=== PATIENT | female | born 1990 | race Caucasian/White ===

== ENCOUNTER 2019-04-05 18:48 | Inpatient (IN) | payer OTHER ==
--- NOTE | 2019-04-05 18:59 | Non Stress Test Report ---
Non Stress Test Datetime Report Generated by CPN: 04/05/2019 18:58 DEMOGRAPHIC EGA NST: 35.0 INDICATION Indication for Study: Ordered by Provider Indication for Study (NST) Other: uti MONITORING Monitor Explained: Monitor Explained; Test Explained; Patient Verbalized Understanding Time on Monitor: 03/04/2019 19:00 Time off Monitor: 03/04/2019 20:00 NST Duration: 60 NST INTERVENTIONS NST Interventions: PO Hydration; IV Fluids; Reposition Patient Physician Notified NST: Dr Lee BABY A: [id number] BABY A Movement : Present Contraction Frequency : irreg FHR Baseline : 130 Accelerations : 15X15 Decelerations : None Variability : Moderate 6-25bpm NST Review: Meets Criteria for Reactive NST NST Review and Verified By : KACEY Barrera Results: Reactive NST REPORT Report Trigger: Send Report
--- NOTE | 2019-04-05 18:59 | Admission Physical ---
Datetime Report Generated by CPN: 04/05/2019 18:58 CURRENT ADMISSION Chief Complaint: Other Chief Complaint Other: nausea/vomiting, RIght flank pain Indication for Induction: Not Applicable Admit Impression : , Intrauterine ; No Active Labor; Intact Membranes; Observation/Evaluation Admit Plan: Admit to Unit; Observation/Evaluation ALLERGIES Medication Allergies: No Medication Allergies: No Known Allergies (03/04/2019) Latex: No Latex Allergies OBSTETRICAL HISTORY EDC: 04/08/2019 00:00 : 1 Para: 0 Gestational Diabetes: No Rh Sensitization: No Incompetent Cervix: No TONG: No Infertility: No ART Treatment: No Uterine Anomaly: No IUGR: No Hx Previous C/S: No Macrosomia: No Hx Loss/Stillborn: No PIH: No Hx : No Placenta Previa/Abruption: No Depression/PP Depression: No PTL/PROM: No Post Hemorrhage: No Current Procedures: Ultrasound; NST Obstetrical History Comments: G1: current SEE RECORDS Alcohol: No Marijuana : No Cocaine: No Other Illicit Drugs: No Cigarettes: Never Smoker. 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 Heart Disease: No Hosp/Surgery: No Autoimmune Disorder: No Anesthetic Complications: No Kidney Disease: Yes Abnormal Pap Smear: No Neuro/Epilepsy: No Psychiatric Disorders: Yes Other Medical Diseases: No Hepatitis/Liver Disease: No Significant Family History: No Varicosities/Phlebitis: No Trauma/Violence : No Thyroid Dysfunction: No Medical History Comments: anxiety, teeth removal INFECTIOUS HISTORY Gonorrhea: No Genital Herpes: No Chlamydia: No Tuberculosis: No Syphilis: No Hepatitis: No HIV/AIDS Exposure: No Rash or Viral Illness: No HPV: No PHYSICAL EXAM General: Normal HEENT: Normal Neurologic: Normal Thyroid: Deferred Heart: Normal Lungs: Normal Breast: Deferred Back: Normal Abdomen: Normal Genitourinary Exam: Normal Extremities: Normal DTRs: Normal Pelvic Type: Adequate Physical Exam Comments: Right CVAT. Vital Signs: Reviewed VAGINAL EXAM Dilatation: 0 Effacement: 0 Station: hi Contraction Comments: rare MEMBRANES Membranes: Intact FETUS A EGA: 35.1 Monitoring: External US FHR- Baseline: 125 Variability: Moderate 6-25bpm Accelerations: 15X15 Decelerations: None Presentation: Vertex Admit Comment: Late H_P for 03/04 approx 1900. 28yo at 35wks presents for right flank pain and nausea. She was seen in the office today and was told she has a UTI. Yeast infection also noted on wet prep. She has been unable to tolerate po intake today so has been unable to tolerate macrobid and has been unable to tolerte pain meds. Right CVAT and flank pain. WBC elevated. Will admit to observation to given IV abx and for pain and nausea control. Once able to tolerate po intake and po meds should be able to go home to continue outpatient treatment. PLANS FOR LABOR AND DELIVERY Labor and Delivery: None Feeding Preference: Breast Circumcision: Yes INFORMED CONSENT Informed Consent Obtained: Risks, Benefits and Alternatives Discussed Signature: with User ID: [email or web address]
[2019-04-05] MEDS ORDERED: RINGERS SOLUTION,LACTATED 1,000 ML IV PRN (19:52)
[2019-04-05 19:58] LABS: APPEARANCE,URINE CLOUDY; BILIRUBIN,URINE NEGATIVE (NEGATIVE); COLOR,URINE YELLOW; GLUCOSE, URINE NEGATIVE (NEGATIVE); KETONES,URINE NEGATIVE (NEGATIVE); LEUKOCYTE ESTERASE,URINE LARGE (NEGATIVE); NITRITE,URINE NEGATIVE (NEGATIVE); PROTEIN,URINE 100 mg/dL (NEGATIVE); URINE SPECIFIC GRAVITY 1.018; UROBILINOGEN,URINE NEGATIVE mg/dL (<2.0)
[2019-04-05 20:30] LABS: URINE AMPHETAMINES SCREEN NEGATIVE; URINE BARBITURATES SCREEN NEGATIVE; URINE BENZODIAZEPINES SCREEN NEGATIVE; URINE COCAINE SCREEN NEGATIVE; URINE MARIJUANA (THC) SCREEN NEGATIVE; URINE METHADONE SCREEN NEGATIVE; URINE PHENCYCLIDINE SCREEN NEGATIVE
[2019-04-05 20:44] LABS: ABSOLUTE EOSINOPHILS # (AUTO) 0.1 10^3/uL (0.0-0.6); ABSOLUTE MONOCYTES (AUTO) 0.8 10^3/uL (0.1-1.4); ABSOLUTE NEUT (AUTO) 9.2 10^3/uL (1.7-8.2); BASOPHILS % (AUTO) 0.3 % (0-2); EOSINOPHILS % (AUTO) 0.6 % (0-6); HEMATOCRIT 34.4 % (36.0-47.0); HEMOGLOBIN 11.6 g/dL (12.0-15.5); LYMPHOCYTES % (AUTO) 16.3 % (13-45); MEAN CORPUSCULAR HEMOGLOBIN 29.9 pg (27.0-33.4); MEAN CORPUSCULAR HGB CONC 33.8 g/dL (32.0-36.0); MEAN CORPUSCULAR VOLUME 88 fl (80-97); MONOCYTES % (AUTO) 6.7 % (3-13); PLATELET COUNT 154 10^3/uL (150-450); RED BLOOD COUNT 3.89 10^6/uL (3.72-5.28); RED CELL DISTRIBUTION WIDTH 15.3 % (11.5-14.0); SEGMENTED NEUTROPHILS % (AUTO) 76.1 % (42-78); TOTAL CELLS COUNTED % (AUTO) 100 %; WHITE BLOOD COUNT 12.1 10^3/uL (4.0-10.5)
[2019-04-05] MEDS ORDERED: MAG HYDROX/AL HYDROX/SIMETH SUSP 30 ML UDCUP ONE (22:41)
[2019-04-05] MEDS ORDERED: MAG HYDROX/AL HYDROX/SIMETH SUSP 30 ML UDCUP PO ONE (23:59)
[2019-04-06] MEDS ORDERED: FENTANYL/BUPIVACAINE/NS/PF 200 MCG/100 ML RTUINJ EPI PRN (00:16)
[2019-04-06] MEDS ORDERED: BENZOIN/ALOE VERA/STORAX/TOLU TINCTURE 60 ML TP PRN (00:16)
[2019-04-06] MEDS ORDERED: BUPIVACAINE HCL 0.25 % INJ/PF (2.5 MG/1 ML) 30 ML VIAL INFIL ONE (00:16)
[2019-04-06] MEDS ORDERED: PHENYLEPHRINE HCL INJ/PF 10 MG/1 ML SDV ONE (00:24)
[2019-04-06] MEDS ORDERED: BUPIVACAINE HCL 0.25 % INJ/PF (2.5 MG/1 ML) 30 ML VIAL ONE (00:25)
[2019-04-06] MEDS ORDERED: FENTANYL CITRATE INJ/PF 100 MCG/2 ML AMPUL ONE (00:25)
[2019-04-06] MEDS ORDERED: FENTANYL/BUPIVACAINE/NS/PF 300 MCG/150 ML RTUINJ EPI ONE (00:25)
[2019-04-06] MEDS ORDERED: EPHEDRINE SULFATE INJ 50 MG/1 ML AMPULE ONE (00:25)
[2019-04-06] MEDS ORDERED: OXYTOCIN/NORMAL SALINE 20 UNIT/1,000 ML RTUINJ ONE (00:43)
[2019-04-06] MEDS ORDERED: MISOPROSTOL 0.2 MG TABLET ONE (00:43)
[2019-04-06] MEDS ORDERED: LIDOCAINE 1% INJ-PF (10 MG/ML) 30 ML SDV ONE (00:43)
[2019-04-06] MEDS ORDERED: OXYTOCIN 10 UNIT/ML VIAL ONE (00:43)
--- NOTE | 2019-04-06 05:51 | Admission Physical ---
Datetime Report Generated by CPN: 04/06/2019 05:51 CURRENT ADMISSION Chief Complaint: Uterine Contractions Chief Complaint Other: nausea/vomiting, RIght flank pain Indication for Induction: Not Applicable Admit Impression : Term, Intrauterine Admit Plan: Initiate Labor Protocol ALLERGIES Medication Allergies: No Medication Allergies: No Known Allergies (04/05/2019) Latex: Unknown Food Allergies: none Environmental Allergies: none OBSTETRICAL HISTORY EDC: 04/08/2019 00:00 : 1 Para: 0 Gestational Diabetes: No Rh Sensitization: No Incompetent Cervix: No TONG: No Infertility: No ART Treatment: No Uterine Anomaly: No IUGR: No Hx Previous C/S: No Macrosomia: No Hx Loss/Stillborn: No PIH: No Hx : No Placenta Previa/Abruption: No Depression/PP Depression: No PTL/PROM: No Post Hemorrhage: No Current Procedures: Ultrasound; NST Obstetrical History Comments: G1: current SEE RECORDS Alcohol: No Marijuana : No Cocaine: No Other Illicit Drugs: No Cigarettes: Never Smoker. 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 Heart Disease: No Hosp/Surgery: No Autoimmune Disorder: No Anesthetic Complications: No Kidney Disease: Yes Abnormal Pap Smear: No Neuro/Epilepsy: No Psychiatric Disorders: Yes Other Medical Diseases: No Hepatitis/Liver Disease: No Significant Family History: No Varicosities/Phlebitis: No Trauma/Violence : No Thyroid Dysfunction: No Medical History Comments: anxiety, teeth removal, kidney surgery INFECTIOUS HISTORY Gonorrhea: No Genital Herpes: No Chlamydia: No Tuberculosis: No Syphilis: No Hepatitis: No HIV/AIDS Exposure: No Rash or Viral Illness: No HPV: No PHYSICAL EXAM General: Normal HEENT: Normal Neurologic: Normal Thyroid: Normal Heart: Normal Lungs: Normal Breast: Deferred Back: Normal Abdomen: Normal Genitourinary Exam: Normal Extremities: Normal DTRs: Normal Pelvic Type: Adequate Physical Exam Comments: Right CVAT. Vital Signs: Reviewed VAGINAL EXAM Dilatation: 0 Effacement: 0 Station: hi Contraction Comments: rare MEMBRANES Membranes: Intact FETUS A EGA: 39.5 Monitoring: External US FHR- Baseline: 125 Variability: Moderate 6-25bpm Accelerations: 15X15 Decelerations: None Presentation: Vertex Admit Comment: Late H_P for 03/04 approx 1900. 28yo at 35wks presents for right flank pain and nausea. She was seen in the office today and was told she has a UTI. Yeast infection also noted on wet prep. She has been unable to tolerate po intake today so has been unable to tolerate macrobid and has been unable to tolerte pain meds. Right CVAT and flank pain. WBC elevated. Will admit to observation to given IV abx and for pain and nausea control. Once able to tolerate po intake and po meds should be able to go home to continue outpatient treatment. PLANS FOR LABOR AND DELIVERY Labor and Delivery: None Pain Management: Medications; Epidural Feeding Preference: Breast Benefit of Breast Feed Discussed: Yes Circumcision: Yes INFORMED CONSENT Informed Consent Obtained: Risks, Benefits and Alternatives Discussed Signature: with User ID: [email or web address]
[2019-04-06] MEDS ORDERED: ACETAMINOPHEN 650 MG SUPP.RECT PR PRN (07:32)
[2019-04-06] MEDS ORDERED: MEASLES,MUMPS&RUBELLA VACC/PF 0.5 ML VIAL SUBCUT PRN (07:32)
[2019-04-06] MEDS ORDERED: PROMETHAZINE HCL 25 MG SUPP.RECT PR PRN (07:32)
[2019-04-06] MEDS ORDERED: NA PHOS,M-B/NA PHOS,DI-BA (ADULT) 133 ML ENEMA PR PRN (07:32)
[2019-04-06] MEDS ORDERED: DIPH/PERTUSS(ACELL)/TETANUS VAC/PF 0.5 ML SYR (>=10YO) IM PRN (07:32)
[2019-04-06] MEDS ORDERED: DIBUCAINE 1% OINTMENT 56 GM TP PRN (07:32)
[2019-04-06] MEDS ORDERED: OXYTOCIN/NORMAL SALINE 20 UNIT/1,000 ML RTUINJ IV PRN (07:32)
[2019-04-06] MEDS ORDERED: PSEUDOEPHEDRINE HCL 30 MG TABLET PO PRN (07:32)
[2019-04-06] MEDS ORDERED: MAGNESIUM HYDROXIDE SUSP 30 ML UDCUP PO PRN (07:32)
[2019-04-06] MEDS ORDERED: DIPHENHYDRAMINE HCL 25 MG CAPSULE PO PRN (07:32)
[2019-04-06] MEDS ORDERED: PROMETHAZINE HCL 25 MG TABLET PO PRN (07:32)
[2019-04-06] MEDS ORDERED: ACETAMINOPHEN WITH CODEINE #3 TABLET PO PRN (07:32)
[2019-04-06] MEDS ORDERED: GLYCERIN/WITCH HAZEL LEAF 1 EACH MED..WIPE TP PRN (07:32)
[2019-04-06] MEDS ORDERED: BENZOCAINE/MENTHOL AEROSOL SPRAY 56 ML TOP PRN (07:32)
[2019-04-06] MEDS ORDERED: PROMETHAZINE HCL INJ 25 MG/1 ML VIAL IV PRN (07:32)
[2019-04-06] MEDS ORDERED: ZOLPIDEM TARTRATE 5 MG TABLET PO PRN (07:32)
--- NOTE | 2019-04-06 10:18 | Warning Signs in Babies ---
VOD Warning Signs Datetime Report Generated by [facility]: 04/06/2019 10:17 VOD#608 -Warning Signs in Babies: Viewed with Parent(s)/Family (03/04/2019 17:39:Prabha Martínez RN)
--- NOTE | 2019-04-06 10:24 | Delivery Summary ---
Del Sum A-C Datetime Report Generated by CPN: 04/06/2019 10:23 DELIVERY PERSONNEL DELIVERY PERSONNEL: [id number] Delivery Doctor:: Benji Rivera MD Anesthesiologist:: Kathleen Perez MD Labor and Delivery Nurse:: magan Andrew Labor and Delivery Nurse:: Grazyna Sandoval, C MATERNAL INFORMATION Delivery Anesthesia: Epidural Medications After Delivery: Pitocin Drip 20 Units/1000ml NSS Estimated Blood Loss (ml): 800 Delivery QBL: 821 Maternal Complications: None LABOR SUMMARY EDC: 04/08/2019 00:00 No. Babies in Womb: 1 Attempted: No Labor Anesthesia: Epidural LABOR INFORMATION Reason for Induction: Not Applicable Onset of Labor: 04/05/2019 19:00 Complete Dilatation: 04/06/2019 05:10 Oxytocin: N/A Group B Beta Strep: negative Antibiotics # of Doses: 0 Antibiotics Time of Last Dose: 0 Name of Antibiotic Given: 0 Steroids Given: None Reason Steroids Not Administered: Not Applicable MEMBRANES Membranes Rupture Method: Spontaneous Rupture of Membranes: 04/05/2019 10:00 Length of Rupture (hr): 21.27 Amniotic Fluid Color: Clear Amniotic Fluid Amount: Small Amniotic Fluid Odor: Normal STAGES OF LABOR Stage 1 hr: 10 Stage 1 min: 10 Stage 2 hr: 2 Stage 2 min: 6 Stage 3 hr: 0 Stage 3 min: 4 Total Time in Labor hr: 12 Total Time in Labor min: 20 VAGINAL DELIVERY Episiotomy: None Laceration #1: Perineal Laceration Extension #1: Second Degree Laceration Repair: Yes Sponge Count Correct: Yes Sharps Count Correct: Yes BABY A INFORMATION Infant Delivery Date/Time: 04/06/2019 07:16 Method of Delivery: Vaginal Born in Route : No : N/A Forceps: N/A Vacuum Extraction: N/A Shoulder Dystocia : No PRESENTATION/POSITION BABY A Presentation: Cephalic Cephalic Presentation: Vertex Vertex Position: Left Occipital Anterior Breech Presentation: N/A PLACENTA INFORMATION BABY A Placenta Delivery Time : 04/06/2019 07:20 Placenta Method of Delivery: Spontaneous Placenta Status: Delivered SCORES BABY A Heart Rate 1 min: >100 bpm Resp Effort 1 min: Good Cry Reflex Irritability 1 min: Cough or Sneeze or Pulls Away Muscle Tone 1 min: Active Motion Color 1 min: Body [place], Extremities Blue SCORE 1 MIN: 9 Heart Rate 5 min: >100 bpm Resp Effort 5 min: Good Cry Reflex Irritability 5 min: Cough or Sneeze or Pulls Away Muscle Tone 5 min: Active Motion Color 5 min: Completely [place] SCORE 5 MIN: 10 INFORMATION BABY A Gestational Age at Delivery: 39.5 Gestational Status: Full Term- 39- 40.6 Weeks Infant Outcome : AB < 20 Weeks Infant Condition : Stable Infant Sex: Male IDENTIFICATION BABY A Verification Date/Time: 04/06/2019 07:33 ID Band Number: [id number] Mother's Name Verified: Yes RN Verifying : maganholly Andrew RN Additional Verifying Personnel: Arabella Sandoval RN WEIGHT/LENGTH BABY A Infant Birthweight (gm): 3649 Infant Weight (lb): 8 Weight (oz): 1 Infant Length (in): 20.25 Length (cm): 51.44 CORD INFORMATION BABY A No. Cord Vessels: 3 Nuchal Cord : N/A Cord Blood Taken: Yes-For Storage (Mom's Blood type +) Suction: None ASSESSMENT BABY A Complications: None Physical Findings at Delivery: Within Normal Limits Respirations: Appears Normal Skin to Skin: Yes Skin to Skin Time (min): 20 Legal Archivist/ALS Called : No Care By: d BELLAVANCE rn Transferred To: Remains with Mother SIGNATURES Signature: with User ID: [email or web address]
[2019-04-06] MEDS: DOCUSATE SODIUM 100 MG CAPSULE PO SCH ×2 (11:16→18:53)
[2019-04-06] MEDS: SENNOSIDES/DOCUSATE 8.6-50 MG 1 EACH TABLET PO SCH (11:17)
[2019-04-06] MEDS: PRENATAL VITAMIN W DHA CAPSULE PO SCH (11:17)
[2019-04-06] MEDS: FERROUS SULFATE 325 MG TABLET PO SCH ×2 (11:17→18:53)
[2019-04-06] MEDS: FAMOTIDINE 20 MG TABLET PO SCH ×2 (11:17→22:13)
[2019-04-06] MEDS: IBUPROFEN 800 MG TABLET PO SCH ×2 (14:31→22:13)
[2019-04-07 07:04] LABS: HEMATOCRIT 27.4 % (36.0-47.0); MEAN CORPUSCULAR HEMOGLOBIN 30.2 pg (27.0-33.4); MEAN CORPUSCULAR HGB CONC 34.1 g/dL (32.0-36.0); MEAN CORPUSCULAR VOLUME 89 fl (80-97); PLATELET COUNT 143 10^3/uL (150-450); RED CELL DISTRIBUTION WIDTH 15.5 % (11.5-14.0); WHITE BLOOD COUNT 13.1 10^3/uL (4.0-10.5)
[2019-04-07 07:08] LABS: HEMOGLOBIN 9.3 g/dL (12.0-15.5)
[2019-04-07] MEDS: IBUPROFEN 800 MG TABLET PO SCH ×3 (07:13→21:18)
[2019-04-07] MEDS: SENNOSIDES/DOCUSATE 8.6-50 MG 1 EACH TABLET PO SCH (09:06)
[2019-04-07] MEDS: PRENATAL VITAMIN W DHA CAPSULE PO SCH (09:06)
[2019-04-07] MEDS: FAMOTIDINE 20 MG TABLET PO SCH ×2 (09:06→21:18)
[2019-04-07] MEDS: FERROUS SULFATE 325 MG TABLET PO SCH ×2 (09:06→17:21)
[2019-04-07] MEDS: DOCUSATE SODIUM 100 MG CAPSULE PO SCH ×2 (09:06→17:21)
--- NOTE | 2019-04-07 11:47 | PDOC PROGRESS REPORT ---
Subjective-OB Progress Note for:: 04/07/19 Subjective: Doing well, no c/o, ambulating in halls, , family at BS, baby crying in room Physical Exam (OB) Vital Signs: Temp Pulse Resp BP Pulse Ox 98.1 F 85 19 102/59 L 98 04/07/19 07:48 04/07/19 07:48 04/07/19 07:48 04/07/19 07:48 04/07/19 07:48 Intake & Output 04/06/19 04/07/19 04/08/19 06:59 06:59 06:59 Weight 63.4 kg - PIH/Pre-Eclampsia Clonus: Negative Headache: Absent Epigastric Pain: No Visual Changes: No - Lochia Lochia Amount: Small 10-25 ml Lochia Color: Rubra/Red - Abdomen Description: Soft, Round Hernia Present: No Fundal Description: Firm, Midline Fundal Height: u/u - u/2 Objective-Diagnostic Laboratory: 04/07/19 06:35 04/07/19 06:35 WBC 13.1 H RBC 3.10 L Hgb 9.3 L D Hct 27.4 L MCV 89 MCH 30.2 MCHC 34.1 RDW 15.5 H Plt Count 143 L Assessment and Plan(PN) - Assessment and Plan (1) Anxiety Is this a current diagnosis for this admission?: Yes (2) Delivery normal Is this a current diagnosis for this admission?: Yes - Time Spent with Patient Time with patient: Less than 15 minutes Medications reviewed and adjusted accordingly: Yes - Disposition Anticipated Discharge: Home Within: within 24 hours
[2019-04-08] MEDS: IBUPROFEN 800 MG TABLET PO SCH (05:32)
[2019-04-08 09:24] VITALS: BP 110/79
[2019-04-08] MEDS: SENNOSIDES/DOCUSATE 8.6-50 MG 1 EACH TABLET PO SCH (09:42)
[2019-04-08] MEDS: PRENATAL VITAMIN W DHA CAPSULE PO SCH (09:42)
[2019-04-08] MEDS: FERROUS SULFATE 325 MG TABLET PO SCH (09:42)
[2019-04-08] MEDS: DOCUSATE SODIUM 100 MG CAPSULE PO SCH (09:42)
[2019-04-08] MEDS: FAMOTIDINE 20 MG TABLET PO SCH (09:42)
--- NOTE | 2019-04-08 10:23 | PDOC DISCHARGE SUMMARY ---
Final Diagnosis Discharge Date: 04/08/19 - Final Diagnosis (1) Second degree perineal laceration during delivery Is this a current diagnosis for this admission?: Yes (2) Delivery normal Is this a current diagnosis for this admission?: Yes Discharge Data - Discharge Medication Home Medications: Citalopram Hydrobromide [Celexa 10 mg Tablet] 10 mg PO QHS 03/04/19 Nitrofurantoin Macrocrystal [Macrodantin] 100 mg PO BID 03/04/19 Acetaminophen [Tylenol] 325 mg PO PRN PRN 04/05/19 Docusate Sodium [Colace 100 mg Capsule] 100 mg PO DAILY 04/05/19 Vit No.130/Iron/Folic [ Vitamins] 1 each PO DAILY 04/05/19 Ranitidine HCl [Zantac 75] 75 mg PO DAILY 04/05/19 Reason(s) for Admission: Onset of Labor Procedures: NST Intrapartum Procedure(s): Spontaneous Vaginal Delivery Complication(s): Laceration-Perineal Laceration-Degree: 2nd - Diagnosis Test Laboratory: Temp Pulse Resp BP Pulse Ox 97.4 F 78 24 H 110/79 98 04/08/19 07:06 04/08/19 07:06 04/08/19 07:06 04/08/19 07:06 04/08/19 07:06 04/05/19 04/05/19 04/07/19 18:50 20:17 06:35 RBC 3.89 3.10 L Hgb 11.6 L 9.3 L D Hct 34.4 L 27.4 L Urine Opiates Screen NEGATIVE - Discharge information/Instructions Discharge Activity: Balance Activity w/Rest, Pelvic Rest Discharge Diet: Regular Disposition: HOME, SELF-CARE Follow up with: [facility] in: 4, Weeks
[2019-04-08] MEDS ORDERED: CITALOPRAM HYDROBROMIDE 20 MG TABLET PO SCH (22:00)
== END 2019-04-08 13:10 | disposition home or self-care (01) | DRG 805 ==
LOC: LC 18:48 → LR 19:55 → 2S 04-06 10:15
PROVIDERS: ADMIT Obstetrics & Gynecology Gynecology; ATTEND Obstetrics & Gynecology Gynecology
PROC: 10E0XZZ Delivery of Products of Conception, External Approach (ICD-10-PCS; principal; 2019-04-06)
PROC: 0KQM0ZZ Repair Perineum Muscle, Open Approach (ICD-10-PCS; 2019-04-06)
DX: O99.344 Other mental disorders complicating childbirth (principal); O75.3 Other infection during labor; Z37.0 Single live birth; O70.1 Second degree perineal laceration during delivery; F41.9 Anxiety disorder, unspecified; Z3A.39 39 weeks gestation of pregnancy
CPT/HCPCS: 36415; 80307; 81005; 84112; 85025; 85027; 86592; 86850; 86900; 86901; 94760; J2370; J2590; J3010; J3490